=== PATIENT | male | born 1990 | race Caucasian/White ===

== ENCOUNTER 2016-12-03 20:59 | Emergency (ER) | payer BC, OTHER ==
[~2016-12-03] VITALS: Ht 182.9 cm; Wt 135.5 kg
[~2016-12-03 20:59] MED LIST: RTPRO
[2016-12-03 21:04] VITALS: Ht 182.9 cm; Wt 135.5 kg
--- NOTE | 2016-12-03 23:13 | ERA ---
ER Documentation Chief Complaint Date/Time DATE: 12/03/16 TIME: 23:09 Chief Complaint chest pain on and off x 1 day HPI This is a 26-year-old male presenting with a 2 day history of chest pain that is described as mild, sharp and intermittent. Patient also describes palpitations. Has not taken any medication to relieve the symptoms. Denies any aggravating or alleviating factors including chest pain with exertion. Pt denies previous CA/VTE, crushing-/squeezing-like CP, upper back pain, aching arm pain/numbness, leg pain/swelling, fatigue, dyspnea, syncope, irregular heart beat, or epigastric pain. Patient also denies any personal or family cardiac history. Patient complains of no other symptoms and describes no other associated manifestations. ROS All systems reviewed and are negative except as per history of present illness. Medications Home Meds Reported Medications Albuterol Sulfate* (Proventil* Neb) 3 Ml Nebu 09/16/09 Allergies Allergies: Coded Allergies: No Known Drug Allergies (Verified Allergy, Mild, 09/16/09) PMhx/Soc History of Surgery: No Hx Neurological Disorder: No Hx Respiratory Disorders: Yes (ASTHMA) Hx Cardiac Disorders: Yes (HYPERTENSION) Hx Miscellaneous Medical Probl: No Hx Alcohol Use: No Hx Substance Use: No Hx Tobacco Use: No Smoking Status: Never smoker Physical Exam Vitals Vital Signs Date Time Temp Pulse Resp B/P Pulse Ox O2 Delivery O2 Flow Rate FiO2 12/03/16 21:04 98.2 82 20 171/94 100 Physical Exam Const: Const: Well-appearing overweight 26-year-old male in no acute distress plan a video game on his phone on initial presentation and during evaluation. Head: Normocephalic, Atraumatic. No sinus tenderness. Eyes: Non-injected; No scleral erythema, discharge or foreign body. EOMI and LIVIER bilaterally. Ears: Normal External Ears, EACs clear, TM normal bilaterally without erythema. Nose: Normal nose without discharge, septal deviation, or sinus tenderness. Oral: No oral edema visualized. Mucous membranes moist and pink. Neck: No cervical lymphadenopathy, masses or goiter palpated. Full range of motion. Supple. Trachea midline. ~ No meningismus. Pulm: Good air movement in upper and lower respiratory tracts. No dyspnea, stridor, tripoding or drooling. Clear to auscultation bilaterally. Percussion unremarkable in all lung meyer bilaterally. Cardio: Regular rate and rhythm; No murmurs, gallops or rubs auscultated. No JVD grossly observed. Radial and posterior tibial pulses 2+ bilaterally. No cyanosis. Capillary refill less than 2 seconds. Abd: Soft, non tender, non distended. No guarding, masses. Normal bowel sounds. No McBurney's point tenderness. MS: Normal motor strength, normal tone with gross examination. Skin: No petechiae or rashes. No ulcer, induration, jaundice. Good turgor. Back: No midline, flank or CVA tenderness. Ext: No cyanosis, or edema. Normal movement of all extremities grossly observed. Neur: Awake, alert and oriented x3. Neurovascularly intact bilaterally. Psych: Normal Mood and Affect. Procedures/MDM 26-year-old overweight otherwise healthy patient was evaluated and worked up for atypical chest pain as described in the history and physical exam. No history of diabetes.. Patient was worked up with an ECG which was read by me as regular axis, no ST wave depression or elevation, regular rate and rhythm, no T- wave inversion/abnormalities. The ECG was also read by my attending is normal sinus rhythm. The current most likely diagnosis is chest pain secondary to stress that is noncardiac. Case has been presented to my attending who agrees with the assessment and plan. The treatment plan will thus include return precautions. JANA score was < 3. At this time I do not suspect the chest pain to be due to an acute coronary syndrome, pericarditis, aortic dissection, pulmonary embolism, pneumothorax, esophageal tear/rupture, pneumonia or pancreatitis. I have spoke with the patient regarding their condition and future management. They have verbally responded that they understand their status and treatment plan. The patients vitals are stable, and their current condition is appropriate for discharge. The patient will be given discharge instructions with return precautions. Departure Diagnosis: Primary Impression: Chest pain Qualified Code: R07.89 - Other chest pain Additional Impression: Stress Condition: Stable Patient Instructions: Chest Pain, Noncardiac Referrals: [facility] YOU HAVE RECEIVED A MEDICAL SCREENING EXAM AND THE RESULTS INDICATE THAT YOU DO NOT HAVE A CONDITION THAT REQUIRES URGENT TREATMENT IN THE EMERGENCY DEPARTMENT. FURTHER EVALUATION AND TREATMENT OF YOUR CONDITION CAN WAIT UNTIL YOU ARE SEEN IN YOUR DOCTORS OFFICE WITHIN THE NEXT 1-2 DAYS. IT IS YOUR RESPONSIBILITY TO MAKE AN APPOINTMENT FOR FOLOW-UP CARE. IF YOU HAVE A PRIMARY DOCTOR --you should call your primary doctor and schedule an appointment IF YOU DO NOT HAVE A PRIMARY DOCTOR YOU CAN CALL OUR PHYSICIAN REFERRAL HOTLINE AT IF YOU CAN NOT AFFORD TO SEE A PHYSICIAN YOU CAN CHOSE FROM THE FOLLOWING [facility] [address] [facility] [address] [facility] [address] [facility] [address] [facility] [address] [facility] [address] Additional Instructions: Follow up with your PCP within the next 1-3 days for a more thorough evaluation and a possible referral to a specialist. Return the the emergency department immediately if symptoms worsen or change. If you have any questions regarding medications, ask your pharmacist or us before you leave. If any adverse reactions occur while taking your medications, discontinue the treatment and return to the emergency department immediately. Take your medications as directed, and complete the entire course of treatment. LANA CAMPOS PA-C Dec 03, 2016 23:13
[2016-12-03] MEDS ORDERED: HC1C30 TOP (23:37)
[2016-12-03 23:40] VITALS: BP 141/93; PULSE 86; RESP 18; TEMP 98.6
== END 2016-12-03 23:43 | disposition home or self-care (01) ==
LOC: FTE 20:59
DX: R07.89 Other chest pain (principal); F43.9 Reaction to severe stress, unspecified; I10 Essential (primary) hypertension; J45.909 Unspecified asthma, uncomplicated
CPT/HCPCS: 93005

== ENCOUNTER 2016-12-06 11:02 | Emergency (ER) | payer BC, OTHER ==
[~2016-12-06] VITALS: Wt 137.5 kg
[~2016-12-06 11:02] MED LIST changes: +HC1C30 TOP
[2016-12-06] MEDS ORDERED: IBUPROFEN 800 MG TAB PO ONE (12:00)
--- NOTE | 2016-12-06 12:11 | ERD ---
ER Documentation Chief Complaint Date/Time DATE: 12/06/16 TIME: 12:07 Chief Complaint PT HERE WITH CHEST PAIN, SEEN 3 DAYS AGO WITH SAME S/S HPI This is a 26-year-old male who presents the emergency department today complaining of chest pain for the past 2 weeks. States he was seen here couple of days ago with the same pain however the pain was on the left before now it is on the right. States he is unsure if his anxiety or not. 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 States it hurts and is worse with deep inspiration sometimes. Denies any cough, fevers or chills. Denies any headache, dizziness, blurred vision. ROS All systems reviewed and are negative except as per history of present illness. Medications Home Meds Active Scripts Naproxen* (Naprosyn*) 500 Mg Tablet, 500 MG PO BID Y for PAIN AND/OR INFLAMMATION, #30 TAB Prov:RADHA WIN PA-C 12/06/16 Hydrocortisone* Topical (Hydrocortisone* Topical) 1%-28.35 Gm Cream..g., 1 APPLIC TOP Q6 Y for ITCHING, #1 TUB Prov:LANA CAMPOS PA-C 12/03/16 Reported Medications Albuterol Sulfate* (Proventil* Neb) 3 Ml Nebu 09/16/09 Allergies Allergies: Coded Allergies: No Known Drug Allergies (Verified Allergy, Mild, 09/16/09) PMhx/Soc History of Surgery: No Hx Neurological Disorder: No Hx Respiratory Disorders: Yes (ASTHMA) Hx Cardiac Disorders: Yes (HYPERTENSION) Hx Miscellaneous Medical Probl: No Hx Alcohol Use: No Hx Substance Use: No Hx Tobacco Use: No Smoking Status: Never smoker Physical Exam Vitals Vital Signs Date Time Temp Pulse Resp B/P Pulse Ox O2 Delivery O2 Flow Rate FiO2 12/06/16 11:07 98.0 99 17 191/91 97 Physical Exam Const: No acute distress Head: Atraumatic Eyes: Normal Conjunctiva ENT: Normal External Ears, Nose and Mouth. Neck: Full range of motion..~ No meningismus. Resp: Clear to auscultation bilaterally. No absent breath sounds. No wheezing. Mild tenderness palpation. Cardio: Regular rate and rhythm, no murmurs Abd: Soft, non tender, non distended. Normal bowel sounds. No epigastric pain. Skin: No petechiae or rashes Back: No midline or flank tenderness Ext: No cyanosis, or edema Neur: Awake and alert Psych: Normal Mood and Affect Results 24 hrs Current Medications Medications (Trade) Dose Ordered Sig/Jen Route PRN Reason Start Time Stop Time Status Last Admin Dose Admin Ibuprofen (Motrin) 800 mg ONCE ONCE PO 12/06/16 12:00 12/06/16 12:01 DC 12/06/16 11:43 DIAGNOSTIC IMAGING REPORT Patient: JULIÁN PEDERSON : 1990 Age: 26 Sex: M MR #: [id number] DOS: 12/06/16 0000 Ordering MD: RADHA WIN PA-C Location: [facility] Room/Bed: PROCEDURE: Chest x-ray CLINICAL INDICATION: Chest pain. TECHNIQUE: One-view frontal. COMPARISON: None available FINDINGS: The cardiac silhouette is normal. No infiltrates are noted. No hilar abnormalities are identified. No pneumothorax or pleural effusions are visualized. IMPRESSION: 1. No active cardiopulmonary changes. RPTAT: HGSG .Reji Mancini MD MD Date Time Electronically viewed and signed by .Reji Mancini MD, MD on 12/06/2016 12: 59 .G/ CC: RADHA WIN PA-C Procedures/MDM This a 26-year-old male who presents the emergency department today complaining of right-sided chest wall pain. Patient has had chest pain for the past 2 weeks and was seen here in the emergency department on December 03 and his EKG was normal at that time. No chest x-ray was done. Given patient's complaints and continued pain I did repeat an EKG and obtain a chest x-ray today. EKG read and interpreted by Dr. Morin rate [address] elevation. No QT prolongation. Normal sinus rhythm. Low suspicion for acute LA, PE, pericarditis. Chest x-ray shows no active cardiopulmonary changes. There are no infiltrates noted. There is no pneumothorax or pleural effusion cardiac silhouette is normal. Patient symptoms at this time is consistent with chest wall pain possibly costochondritis. He is afebrile and otherwise well-appearing. He is not tachycardic. His oxygen saturation 97%. Low suspicion for PE, abscess, pleural effusion, pneumothorax. Patient was given Motrin here in the emergency department and pain improved.. I will prescription for Naprosyn for home. Patient's blood pressure was elevated at 191/91 here. He denied any headache, dizziness or blurred vision. Do not feel that the patient requires medication at this time. Low suspicion for hypertensive emergency. At this time the patient is stable for discharge and outpatient management. Patient should follow up with their PCP in the next 1-2 days. They may return to the emergency department sooner for any persistent or worsening of symptoms. Patient understood and agreed with the plan. Departure Diagnosis: Primary Impression: Chest wall pain Condition: RADHA Fowler PA-C Dec 06, 2016 12:11
--- NOTE | 2016-12-06 12:59 | RADRPT ---
PROCEDURE: Chest x-ray CLINICAL INDICATION: Chest pain. TECHNIQUE: One-view frontal. COMPARISON: None available FINDINGS: The cardiac silhouette is normal. No infiltrates are noted. No hilar abnormalities are identified. No pneumothorax or pleural effusions are visualized. IMPRESSION: 1. No active cardiopulmonary changes. RPTAT: HGSG .Reji Mancini MD, MD Date Time Electronically viewed and signed by .Reji Mancini MD, MD on 12/06/2016 12:59 .G/
[2016-12-06] MEDS ORDERED: NAPR-260 PO (13:33)
== END 2016-12-06 14:09 | disposition home or self-care (01) ==
LOC: FTE 11:02
DX: R07.89 Other chest pain (principal); J45.909 Unspecified asthma, uncomplicated; I10 Essential (primary) hypertension
CPT/HCPCS: 71010; 93005